=== PATIENT | female | born 1985 | race Caucasian/White ===

== ENCOUNTER → 2017-12-25 | Outpatient (CLI) | payer OTHER | LOC: M RAD 16:15 | DX: Z87.59 Personal history of other complications of pregnancy, childbirth and the puerperium (principal) | CPT/HCPCS: 76642 ==

== ENCOUNTER → 2018-10-10 | Outpatient (REF) | payer OTHER | LOC: M SFHCLERA 09:44 | PROVIDERS: ATTEND Nurse Practitioner Family | DX: J02.9 Acute pharyngitis, unspecified (principal) ==

== ENCOUNTER 2019-02-16 15:39 | Emergency (ER) | payer OTHER ==
[~2019-02-16] VITALS: Ht 160 cm; Wt 65.9 kg
[2019-02-16] MEDS ORDERED: PRENTAB29 (15:46)
[2019-02-16 16:22] LABS: BASO # 0.1 10^3/uL (0.0-0.2); BASO % 0.5 % (0.0-1.0); EOS % 0.3 % (0.0-3.0); HEMATOCRIT 43.2 % (36.0-47.0); HEMOGLOBIN 14.2 g/dl (12.0-15.5); LYMPH # 3.2 10^3/uL (1.5-5.0); LYMPH % 28.9 % (24.0-44.0); MEAN CORPUSCULAR HEMOGLOBIN 29.7 pg (27.0-33.0); MEAN CORPUSCULAR HGB CONC 32.9 g/dl (32.0-36.5); MEAN CORPUSCULAR VOLUME 90.4 fl (80.0-96.0); MONO # 0.9 10^3/uL (0.0-0.8); MONO % 8.5 % (0.0-5.0); NEUTROPHILS # 6.7 10^3/uL (1.5-8.5); NEUTROPHILS % 61.4 % (36.0-66.0); PLATELET COUNT, AUTOMATED 272 10^3/uL (150-450); RED BLOOD COUNT 4.78 10^6/uL (4.00-5.40)
[2019-02-16 16:47] LABS: BLOOD UREA NITROGEN 15 MG/DL (7-18); CALCIUM LEVEL 9.2 MG/DL (8.5-10.1); CARBON DIOXIDE LEVEL 25 MEQ/L (21-32); CHLORIDE LEVEL 106 MEQ/L (98-107); CREATININE FOR GFR 0.84 MG/DL (0.55-1.30); GLOMERULAR FILTRATION RATE > 60.0 (>60); GLUCOSE, FASTING 85 MG/DL (70-100); POTASSIUM SERUM 3.5 MEQ/L (3.5-5.1); SODIUM LEVEL 140 MEQ/L (136-145)
[2019-02-16 17:47] LABS: ALBUMIN 4.6 GM/DL (3.2-5.2); ALT/SGPT 21 U/L (12-78); BILIRUBIN,DIRECT 0.2 MG/DL (0.0-0.2); BILIRUBIN,TOTAL 0.7 MG/DL (0.2-1.0); HCG, SERUM QUANTITATIVE 175 MIU/ML; LIPASE 139 U/L (73-393); TOTAL PROTEIN 8.1 GM/DL (6.4-8.2)
--- NOTE | 2019-02-16 18:06 | REPVR ---
PROCEDURE INFORMATION: Exam: US First Trimester, Transabdominal Exam date and time: 02/16/2019 5:44 PM Clinical history: 33 years old, female;Vaginal bleeding. approx 5 weeks via home urine test. LMP: 01/13/19. EGA by LMP: 4 weeks 6 days.. ESAU by LMP: 10/20/19. TECHNIQUE: Imaging protocol: Real-time transabdominal obstetrical ultrasound of the maternal pelvis and a first trimester , less than 14 weeks 0 days, with image documentation. COMPARISON: No relevant prior studies available. FINDINGS: GESTATION: No intrauterine gestational sac is seen. MATERNAL: Uterus: Unremarkable. 8.3 x 4.7 x 4.8 cm. Cervix: Unremarkable. Right adnexa: The right ovary is normal in size. It is 4.2 x 2.1 x 3.4 cm. Resistive index is 0.47. Within the right ovary, a complex area with increased peripheral vascularity on color Doppler is 2.2 x 1.8 x 1.5 cm (image 47) Left adnexa: The left ovary is normal in size. It is 4.3 x 1.8 x 1.5 cm. Resistive index is 0.55. Intraperitoneal: There is a small volume of complex free fluid in the pelvis. IMPRESSION: No intrauterine or extrauterine gestational sac is identified. Differential diagnosis includes early [id number] intrauterine , recent miscarriage or occult ectopic . Recommend serial quantitative beta hCG levels with rescanning if levels rise. Within the right ovary, a complex vascular area, 2.2 x 1.8 x 1.5 cm, is nonspecific. It may be a corpus luteum. An ectopic cannot be excluded. There is a small volume of complex free fluid in the pelvis. Electronically signed by: Miles Baugh On 02/16/2019 18:06:32 PM
[2019-02-16] MEDS ORDERED: KEFL500C17 PO (19:16)
[2019-02-16] MEDS ORDERED: CEPHALEXIN 500 MG CAP PO ONE (19:30)
[2019-02-16 19:37] VITALS: BP 127/61
[2019-02-16 20:30] LABS: CHLAMYDIA DNA AMPLIFICATION NEGATIVE (NEGATIVE); GC DNA AMPLIFICATION NEGATIVE (NEGATIVE)
--- NOTE | 2019-02-18 17:17 | ED PDOC ---
Post-Departure Follow-Up radiology report faxed to Bao Ray Sarah MD Feb 18, 2019 17:17
== END 2019-02-16 19:46 | disposition home or self-care (01) ==
LOC: M ED 15:39
DX: O34.80 Maternal care for other abnormalities of pelvic organs, unspecified trimester (principal); O26.899 Other specified pregnancy related conditions, unspecified trimester; O20.8 Other hemorrhage in early pregnancy; Z3A.00 Weeks of gestation of pregnancy not specified; Z79.899 Other long term (current) drug therapy

== ENCOUNTER → 2019-04-13 | Outpatient (CLI) | payer OTHER ==
[~2019-04-13] MED LIST: KEFL500C17 PO; PRENTAB29
--- NOTE | 2019-04-13 12:37 | REP ---
RIGHT SECOND DIGIT, FOUR VIEWS: Four views of the right second digit performed. There is no evidence of acute fracture, dislocation, or intrinsic bone disease. Joint spaces are unremarkable. IMPRESSION: Negative right second digit. Electronically Signed by José Manuel Rodríguez MD 04/13/2019 12:52 P
== END ==
LOC: M LRY 12:10
PROVIDERS: ATTEND Nurse Practitioner Family
DX: M79.644 Pain in right finger(s) (principal)
CPT/HCPCS: 73140; 81025; G0463

== ENCOUNTER 2020-02-14 23:57 | Inpatient (IN) | payer OTHER ==
[~2020-02-14] VITALS: Ht 160 cm; Wt 84.9 kg
[2020-02-15] VITALS (37 sets, daily range): BP systolic 94–157; BP diastolic 50–116
[2020-02-15] MEDS ORDERED: LR 1,000 ML IV SCH (00:36)
[2020-02-15] MEDS ORDERED: LACTATED RINGER'S 1000 ML IV STA (00:36)
[2020-02-15] MEDS ORDERED: OXYTOCIN DRIP 30 UNITS in IV 1 EA IV SCH ×2 (00:45→05:16)
--- NOTE | 2020-02-15 01:00 | HPEPDOC ---
Obstetrical History & Physical General Date of Admission History of Present Illness 34 yo @ 39+2 by LMP C/W 9 W US who is admitted in labor after presenting for SROM Check and noted to be ruptured with positive nitrizine test and pooling. MVP 3.6cm. patient reports her water broke around 1130 and was clear. she reports regular movements. she has no other concerns. Information Provided By: Patient Age: 34 : 4 Term: 2 Abortions: 1 Livin Care Care: Good Care Dating Final EDC: Feb 20, 2020 Final EDC by: LMP 1st Trimester Date: Jul 20, 2019 Estimated Date of Confinement: Feb 20, 2020 Antepartum Course Diagnos(e)s 1. 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 last outbreak over 3 months ago Height (inches): 64 Pre- weight (lbs.): 150 Admission Weight (lbs.): 182 Change in Weight (lbs.): 32 Past Medical History Past Obstetrical History : Past Obstetrical History: Multigravida Type of Delivery: Spontaneous Vaginal Del. Sex of Infant: Female [employer] History: No pertinent history Past Medical History Surgical History: Denies/None Family History Significant Family History: No pertinent family hx Social History Marital Status: Family situation: Spouse/partner home Psychosocial History: No pertinent psych hx * Smoker: non-smoker Alcohol: Denies Drugs: denies Abuse Violence Screening Have you been hit/kicked/slapp: No Have you been sexually assault: No Imunizations Tdap status: current Influenza Status: current Allergies Coded Allergies: No Known Allergies (Unverified , 02/16/19) Medications Scheduled Cephalexin (Keflex) 500 Mg Capsule, 500 MG PO Q12H Miscellaneous Medications [] Physical Examination Physical Examination GENERAL: Alert and oriented times three. BREAST: . ABDOMEN: Gravid and non-tender to touch. FETUS: Is vertex (VTX) by sterile vaginal examination and TAUS HEART RATE: Regular rate and rhythm. LUNGS: Normal work of breathing EXTREMITIES: No edema. SVE: 4/75/-2. Pertinent Laboratoy Data Blood Type: A+ RBC Antibody Screen: Negative HIV: Negative Hepatitis B: Negative Hepatitis C: Unknown Rapid Plasma Reagin: Nonreactive Rubella: Immune Varicella: Immune Chlamydia/Gonorrhea: Negative Group B Streptococcus: Negative Quad Screen Test: Unknown Anatomy Ultrasound Placenta Previa: No Vaginal Examination Dilation: 4 cm Effacement: 70% Station: -2 Cervical Consistency: Soft Cervical Position: Anterior Presentation: Cephalic presentation Assessment Variability: Moderate Accelerations: Positive Decelerations: None Tocometer Contractions: Yes Frequency: irregular Strength: palpated as moderate Multi-drug resistant Organism: No history of MDRO Assessment/Plan Assessment 34 yo @ 39+2 by LMP C/W 9 W US who is admitted in labor after presenting for SROM Check and noted to be ruptured with positive nitrizine test and pooling. MVP 3.6cm. pelvis proven to 8'12. she is RH Positive and GBS Negative. reactive NST, Adequate for labor. want epidural for pain control. APC 1. Oral HSV, on suppression since 36 weeks- last outbreak 3 months ago Plan Admit and orient. Type Copy Examiner and consent for vaginal delivery, operative delivery, augmentation with pitocin, delivery. Diet: clear. Group B Streptococcus (GBS) negative. Labs and intravenous (IV) per unit protocol. Lactated Ringers (LR): Bolus 1000 mL, then at 125 mL/hr. Anticipate normal spontaneous delivery (). C-S as appropriate. GUERLINE IBANEZ MD Feb 15, 2020 01:00
[2020-02-15 01:09] LABS: HEMATOCRIT 36.9 % (36.0-47.0); HEMOGLOBIN 12.7 g/dl (12.0-15.5); MEAN CORPUSCULAR HEMOGLOBIN 31.1 pg (27.0-33.0); MEAN CORPUSCULAR HGB CONC 34.4 g/dl (32.0-36.5); MEAN CORPUSCULAR VOLUME 90.4 fl (80.0-96.0); PLATELET COUNT, AUTOMATED 160 10^3/uL (150-450); RED BLOOD COUNT 4.08 10^6/uL (4.00-5.40); WHITE BLOOD COUNT 9.1 10^3/uL (4.0-10.0)
[2020-02-15] MEDS ORDERED: FENTANYL 2MCG/ML ROPIVACAINE 0.2% IN 0.9% NACL 100ML IVBAG As Ordered ONE (02:15)
[2020-02-15] MEDS ORDERED: EPIDURAL/PCA KEYS XX PRN (03:02)
[2020-02-15] MEDS ORDERED: ePHEDrine SULFATE 25 MG/5 ML(5MG/ML) SYRINGE IV PRN (03:02)
[2020-02-15] MEDS ORDERED: LACTATED RINGER'S 1000 ML IV PRN (03:02)
[2020-02-15] MEDS ORDERED: REFRIGERATOR IV KEYS XX PRN (03:02)
[2020-02-15] MEDS ORDERED: ONDANSETRON 4MG/2ML VIAL IV PRN (03:02)
[2020-02-15] MEDS ORDERED: diphenhydrAMINE 50MG/ML VIAL (J1200) IV PRN (03:02)
[2020-02-15] MEDS ORDERED: FENTANYL/ROPIVACAINE/NACL BAG 100 ML EPIDURAL SCH (03:02)
[2020-02-15] MEDS ORDERED: NALOXONE INJ 0.4MG/1ML VIAL (J2310 PER 1MG) IV PRN (03:02)
[2020-02-15] MEDS ORDERED: EPIDURAL COMMENT XX SCH (03:02)
--- NOTE | 2020-02-15 04:18 | IPNPDOC ---
Obstetrical Progress Note Date of Service Feb 15, 2020 Subjective To room for assessment. patient is feeling a lot of pressure and wants to push FHT: 135, Mod vilma,+accels, one late decel when she was siting up- resolved with position change---cat II tracing SVE: 80/0 [place]: 3-07/15 A/P Patient now is in active labor. cat II tracing reolved with position change. can get epidural for pain control. anticipate . Objective Vital Signs Date Time Temp Pulse Resp B/P (MAP) Pulse Ox O2 Delivery O2 Flow Rate FiO2 02/15/20 02:19 73 18 128/70 (89) 02/15/20 01:44 97.7 97 Room Air GUERLINE IBANEZ MD Feb 15, 2020 04:18
--- NOTE | 2020-02-15 05:16 | DNPDOC ---
[facility] Delivery Note Delivery Note DATE OF DELIVERY:02/15/2020 PREDELIVERY DIAGNOSIS: 39-5/7 weeks' gestation and labor. POST DELIVERY DIAGNOSIS: Delivered. PROCEDURE: Spontaneous vaginal delivery CONTACT WORKER: Dr. Guerline Ibanez ANESTHESIA: Epidural ESTIMATED BLOOD LOSS: 150 mL. FINDINGS: 8 pound 6 ounce female infant, Score 9/9, body cord times one. DELIVERY SUMMARY: DELIVERY SUMMARY: Patient is a 34-year-old 4now para 3013 who was admitted to labor and delivery for labor after SROM . she was BGS negative and Rh positive. Baby Girl's head was delivered without difficulty over intact perineum in OA position. Loose body cord was noted and delivered through. The shoulders were then delivered without difficulty. Cord was then clamped x2 and cut by FOB after 1 min of delayed cord clamping. was placed on mother's belly. Pitocin bolus was started. Perineum was inspected and found to have no lacerations. The placenta was then delivered spontaneously intact. Cord had a 3 vessel cord. EBL was 150 mL. The vagina and perineum were reinspected and hemostasis was good. Fundus was firm. Patient tolerated delivery well.. GUERLINE IBANEZ MD Feb 15, 2020 05:16
[2020-02-15] MEDS ORDERED: DIBUCAINE 1% OINTMENT 30GM TOP PRN (05:30)
[2020-02-15] MEDS ORDERED: ACETAMINOPHEN 500 MG TAB PO PRN (05:30)
[2020-02-15] MEDS ORDERED: DOCUSATE SODIUM 100 MG CAP PO PRN (05:30)
[2020-02-15] MEDS ORDERED: MOM 30ML SUSPENSION UDC PO PRN (05:30)
[2020-02-15] MEDS ORDERED: PROMETHAZINE 25 MG TAB PO PRN (05:30)
[2020-02-15] MEDS ORDERED: ANUSOL HC CREAM 30GM TOP PRN (05:30)
[2020-02-15] MEDS: FERROUS SULFATE 325MG TAB PO SCH (10:28)
[2020-02-15] MEDS: PRENATAL VITAMINS CHEWABLE TABLET PO SCH (10:28)
[2020-02-15] MEDS: IBUPROFEN 800 MG TAB PO PRN ×2 (10:29→18:04)
[2020-02-16] MEDS: IBUPROFEN 800 MG TAB PO PRN (05:08)
[2020-02-16 05:45] VITALS: BP 111/68
--- NOTE | 2020-02-16 07:16 | IPNPDOC ---
Progress Note Date of Service: Feb 16, 2020 Day#: 1 Progress Note SUBJECT: Milagros is a 34yo now status post uncomplicated spontaneous va ginal delivery doing well day # 1. She has been ambulating, voiding spontaneously without issue and tolerating regular diet. Breast feeding without issue. Reports lochia is decreasing. Pain controlled on oral pain meds. OBJECTIVE: VITAL SIGNS: Within normal limits, afebrile. Alert and oriented times three. Abdomen: Fundus firm at U-2. Soft, NTTP. : no edema, small lochia ASSESSMENT: Milagros is a 34yo now status post uncomplicated spontaneous vaginal delivery doing well day # 1. Vitals within normal limits, afebrile, hemodynamically stable with no evidence of infection. PLAN: 1. Discharge to home tomorrow 2. Tylenol and Motrin for pain. 3. Encourage breast feeding and ambulation. 4. Encourage regular diet as tolerated 5. Routine PP visit in 6 weeks in clinic. 6. Discussed return precautions at length. VS, I&O, 24H, Fishbone Vital Signs/I&O Vital Signs Date Time Temp Pulse Resp B/P (MAP) Pulse Ox O2 Delivery O2 Flow Rate FiO2 02/16/20 05:45 98.2 77 18 111/68 (82) 02/15/20 03:52 Room Air 02/15/20 01:44 97 I&O- Last 24 Hours up to 6 AM 02/16/20 06:00 Output Total 600 ml Balance -600 ml CADY RAMSEY DO Feb 16, 2020 07:16
[2020-02-16] MEDS: PRENATAL VITAMINS CHEWABLE TABLET PO SCH (08:19)
[2020-02-16] MEDS: FERROUS SULFATE 325MG TAB PO SCH (08:19)
[2020-02-16] MEDS ORDERED: IBUP80TA PO (10:47)
[2020-02-16] MEDS ORDERED: ACET-683 PO (10:47)
[2020-02-16] MEDS ORDERED: DOCU100C16 PO (10:47)
== END 2020-02-16 13:00 | disposition home or self-care (01) | DRG 807 ==
LOC: M LDO 23:57 → M LDI 02-15 00:42 → M OBS 02-15 10:39
PROVIDERS: ADMIT Obstetrics & Gynecology; ATTEND Obstetrics & Gynecology
PROC: 10E0XZZ Delivery of Products of Conception, External Approach (ICD-10-PCS; principal; 2020-02-15)
DX: O98.52 Other viral diseases complicating childbirth (principal); Z37.0 Single live birth; B00.9 Herpesviral infection, unspecified; Z3A.39 39 weeks gestation of pregnancy; O69.82X0 Labor and delivery complicated by other cord entanglement, without compression, not applicable or unspecified

== ENCOUNTER → 2020-05-21 | Outpatient (REF) | payer OTHER ==
[~2020-05-21] MED LIST changes: +ACET-683 PO; +DOCU100C16 PO; +IBUP80TA PO
== END ==
LOC: M LAB REF 17:30
PROVIDERS: ATTEND Physician Assistant
DX: N39.0 Urinary tract infection, site not specified (principal)

== ENCOUNTER → 2020-06-04 | Outpatient (REF) | payer OTHER | LOC: M LAB REF 18:58 | PROVIDERS: ATTEND Physician Assistant | DX: N39.0 Urinary tract infection, site not specified (principal) ==